=== PATIENT | female | born 2000 | race Two or more races ===

== ENCOUNTER 2025-01-09 20:01 | Emergency (ER) | payer SELFPAY ==
[~2025-01-09] VITALS: Ht 175.3 cm; Wt 150.0 kg
--- NOTE | 2025-01-09 20:33 | ED.PDOC ---
History of Present Illness HPI Comments 24 y/o F presents for c/c of palpitations. Patient reports onset 20x minutes ago, unprovoked, while relaxing and laying in bed. She endorses on feeling febrile and developing tremors to her hands, first, before palpitation episode ensued. Episode lasted 4-5x minutes in duration. At time of triaging and asses sment, patient reports being asymptomatic, currently. Denies any significant cardiac medical history or recent stressors, strenuous activities, or substance use. Chief Complaint: Palpitations Time Seen by MD: 20:10 Reviewed Notes: Nurses Notes, Allergies Allergies: Coded Allergies: NO KNOWN ALLERGIES (Unverified , 01/09/25) Information Source: Patient Mode of Arrival: Ambulatory Severity: Moderate Timing: Hours Duration: Intermittent, Minutes Prehospital treatment: None Past Medical History PAST MEDICAL HISTORY: Denies Surgical History: Denies all surgeries CONTRACT SPECIALIST History: Denies all CONTRACT SPECIALIST Hx Family History Family History: Unknown Social History Smoker: Non-Smoker Alcohol: Denies ETOH Use Drugs: Denies Drug Use Lives In: Home All Other Systems: Reviewed and Negative (Comprehensive systems review obtained and negative except for what is stated in the HPI.) Physical Exam General Appearance: No Apparent Distress, Normal HEENT: Normal ENT Inspection, Pharynx Normal, TMs Normal Neck: Full Range of Motion, Non-Tender, Normal, Normal Inspection Respiratory: Chest Non-Tender, Lungs Clear, No Accessory Muscle Use, No Respiratory Distress, Normal Breath Sounds Cardiovascular: No Edema, No JVD, No Murmur, No Gallop, Normal Peripheral Pulses, Regular Rate/Rhythm Breast Exam: Deferred Gastrointestinal: No Organomegaly, Non Tender, No Pulsatile Mass, Normal Bowel Sounds, Soft Genitalia: Deferred Pelvic: Deferred Rectal: Deferred Extremities: No calf tenderness, Normal capillary refill, Normal inspection, Normal range of motion, Non-tender, No pedal edema Musculoskeletal : Apperance: Normal Neurologic: Alert, 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 Was a procedure done?: No EKG EKG : Pulse Rate (adult): 88 Egan: Normal Cardiac Rhythm: NSR Block: None Hypertrophy: None ST: Normal Differential Dx Considerations may include: anxiety, panic attack, arrhythmia, electrolyte imbalance, viral syndrome, UTI, among others X-Ray, Labs, Meds, VS Vital Signs Date Time Temp Pulse Resp B/P (MAP) Pulse Ox O2 Delivery O2 Flow Rate FiO2 01/09/25 21:04 72 01/09/25 20:33 88 01/09/25 20:06 88 01/09/25 20:01 98.1 85 18 128/83 (98) 98 98.1 Lab Test 01/09/25 21:26 01/09/25 20:21 01/09/25 20:12 Range/Units Troponin I High Sensitivity < 3 L < 3 L </=34 ng/L White Blood Count 7.5 4.4-10.8 10^3/uL Red Blood Count 4.24 4.0-5.20 10^6/uL Hemoglobin 12.5 12.2-16.2 g/dL Hematocrit 36.7 36.0-46.0 % Mean Corpuscular Volume 86.6 80.0-100.0 fL Mean Corpuscular Hemoglobin 29.6 28.0-32.0 pg Mean Corpuscular Hemoglobin Concent 34.1 32.0-36.0 g/dL Red Cell Distribution Width 13.1 11.8-14.3 % Platelet Count 362 140-450 10^3/uL Mean Platelet Volume 6.6 L 6.9-10.8 fL Neutrophils (%) (Auto) 43.0 37.0-80.0 % Lymphocytes (%) (Auto) 42.5 10.0-50.0 % Monocytes (%) (Auto) 6.8 0.0-12.0 % Eosinophils (%) (Auto) 7.0 0.0-7.0 % Basophils (%) (Auto) 0.7 0.0-2.0 % Neutrophils # (Auto) 3.2 1.6-8.6 10 ^3/uL Lymphocytes # (Auto) 3.2 0.4-5.4 10 ^3/uL Monocytes # (Auto) 0.5 0-1.3 10 ^3/uL Eosinophils # (Auto) 0.5 0-0.8 10 ^3/uL Basophils # (Auto) 0.1 0-0.2 10 ^3/uL Nucleated Red Blood Cells 0.0 % Sodium Level 143 136-145 mmol/L Potassium Level 3.6 3.5-5.1 mmol/L Chloride Level 107 98-107 mmol/L Carbon Dioxide Level 28 20-31 mmol/L Anion Gap 8 5-15 Blood Urea Nitrogen 12 9-23 mg/dL Creatinine 0.74 0.550-1.02 mg/dL Glomerular Filtration Rate Calc 116 >90 mL/min BUN/Creatinine Ratio 16.2 10.0-20.0 Serum Glucose 111 H 74-106 mg/dL Calcium Level 10.1 8.7-10.4 mg/dL Urine Color Yellow Yellow Urine Clarity Clear Clear Urine pH 6.5 5.0-9.0 Urine Specific [place] 1.032 1.001-1.035 Urine Protein Trace H Negative Urine Ketones Negative Negative Urine Blood 2+ H Negative /uL Urine Nitrite Negative Negative Urine Bilirubin Negative Negative Urine Urobilinogen 2 H Negative mg/dL Urine Leukocyte Esterase Trace Negative /uL Urine RBC 1 0 - 4 /hpf Urine Microscopic WBC 3 0-5 /HPF Urine Squamous Epithelial Cells Few <5 /hpf Urine Bacteria None seen None Seen /hpf Urine Mucus Few None Seen Urine Glucose Normal Normal mg/dL [place] [id number] Ph: [phone] DIAGNOSTIC IMAGING Diagnostic Imaging Report : [id number] Signed PATIENT: ELOISA LUNA ACCT: [id number] UNIT: [id number] : 2000 LOC: ER ROOM / BED: / AGE / SEX: 24 / F ADM STATUS: REG ER SERVICE 11 ORDERING PHYSICIAN: ARIAN HATCH MD PROCEDURE(s): CXRP - CHEST PORTABLE REASON: palpitations ORDER NUMBER(s): [id number], ACCESSION NUMBER(s): [id number] EXAM: XY CHEST PORTABLE CLINICAL HISTORY: palpitations TECHNIQUE: Single frontal view of the chest WID: COMPARISON: None FINDINGS: Lines and tubes: None Chest: The heart size and pulmonary vasculature is within normal limits. No pleural effusion, pneumothorax, or consolidation. The osseous structures are grossly intact. IMPRESSION: No acute cardiopulmonary abnormality. ATED BY: AMELIA FRIEDMAN MD DICTATED DATE/TIME: 01/09/252035 SIGNED BY: AMELIA FRIEDMAN MD SIGNED DATE/TIME: 01/09/252035 CC: Time of 1ST Reevaluation: 20:40 Reevaluation 1ST: Unchanged Patient Education/Counseling: Diagnosis, Treatment, Need For Follow Up Family Education/Counseling: No Family Present Additional Information Previous visits reviewed: N/A The following tests were ordered, and results were reviewed by me: CXR, CBC, BMP, UA, troponin Additional Information was gathered from interviewing the following independent historians: N/A I reviewed and agreed with the following test results read by other providers: CXR I discussed treatment and results with medical personnel and: patient SEPSIS Sepsis Screen Date sepsis recognized/suspect: Jan 09, 2025 Time Sepsis recognized/suspect: 2000 Recent Procedure: No On Antibiotic Therapy: No Respiratory Rate >20: No Heart Rate >90: No Temp<36 C (96.8 F) or >38.3 C: No SBP <90 or MAP <65 mmHG: No New Acute Mental Status Change: No Is the patient on CPAP, BIPAP,: No Physician Orders Chest Portable (01/09/25 20:12) Electrocardigram (01/09/25 20:28) Electrocardigram (01/09/25 21:28) Electrocardigram (01/09/25 23:28) Vital Signs Date Time Temp Pulse Resp B/P (MAP) Pulse Ox O2 Delivery O2 Flow Rate FiO2 01/09/25 21:04 72 01/09/25 20:33 88 01/09/25 20:06 88 01/09/25 20:01 98.1 85 18 128/83 (98) 98 98.1 Laboratory Tests Test 01/09/25 20:21 White Blood Count 7.5 10^3/uL (4.4-10.8) Departure 1 Departure Time of Disposition: 22:29 (Patient presented with chest pain that was concerning for possible STEMI, ACS, PE, Pneumonia, Muscle Strain, COPD, Dissection. Data: 1. I ordered and reviewed the result of at least 3 labs including a CBC, BMP, and Troponin. 2. I independently interpreted the following tests: EKG which shows normal sinus rhythm and Chest X-ray which shows a benign chest.Risk:This patient presented with a high risk of morbidity due to further diagnostic testing or treatment and may suffer from an acute cardiac or respiratory disorder. After review of all the data patient is unlikely to have a pe , dissection, and is low risk for acs. Patient is stable at this time.Workup so far is benign and patient will be discharged with outpatient followup. ) Impression: Primary Impression: Palpitations Disposition: HOME / SELF CARE / HOMELESS Condition: Stable Additional Instructions: You presented today with palpitations. Your workup today was benign including labs, troponin, EKG, chest x-ray. Your pain may be from musculoskeletal strain, acid reflux, anxiety, or many other factors. It is important to follow up with your regular doctor within 1 week. If your symptoms worsen or you have any other concerns please return to the emergency room. Discharged With: Self, Significant Other Critical Care Note Critical Care Time?: No Stability Stability form required: No Heart Score Heart Score: Heart Score Response (Comments) Value History Slightly Suspicious 0 EKG Normal 0 Age <45 0 Risk Factors No known risk factors 0 Troponin Normal limit 0 Total 0 I personally scribed for ARIAN HATCH MD ([email or web address]) on 01/09/25 at 20:33. Electronically submitted by Mina Barber ([email or web address]). I personally scribed for ARIAN HATCH MD ([email or web address]) on 01/09/25 at 21:26. Electronically submitted by Mina Barber ([email or web address]). ARIAN HATCH MD Jan 09, 2025 20:33
--- NOTE | 2025-01-09 20:39 | DVH ---
EXAM: XY CHEST PORTABLE CLINICAL HISTORY: palpitations TECHNIQUE: Single frontal view of the chest WID: COMPARISON: None FINDINGS: Lines and tubes: None Chest: The heart size and pulmonary vasculature is within normal limits. No pleural effusion, pneumothorax, or consolidation. The osseous structures are grossly intact. IMPRESSION: No acute cardiopulmonary abnormality.
[2025-01-09 20:44] LABS: Hematocrit 36.7 % (36.0-46.0); Hemoglobin 12.5 g/dL (12.2-16.2); Mean Corpuscular Hemoglobin 29.6 pg (28.0-32.0); Mean Corpuscular Volume 86.6 fL (80.0-100.0); Nucleated Red Blood Cells % 0.0 %
[2025-01-09 20:44] LABS: Urine Protein, UAD TRACE (Negative)
[2025-01-09 20:46] LABS: Chloride 107 mmol/L (98-107); Potassium 3.6 mmol/L (3.5-5.1); Sodium 143 mmol/L (136-145)
[2025-01-09 20:47] LABS: Anion Gap 8 (5-15); Calcium 10.1 mg/dL (8.7-10.4); Carbon Dioxide 28 mmol/L (20-31)
[2025-01-09 20:52] LABS: BUN/Creatinine Ratio 16.2 (10.0-20.0); Blood Urea Nitrogen 12 mg/dL (9-23)
[2025-01-09 21:25] LABS: Glucose 111 mg/dL (74-106)
[2025-01-09 23:20] VITALS: BP 139/78; PULSE 66; RESP 18; TEMP 98.6; O2SAT 98
--- NOTE | 2025-01-10 08:29 | ECG ---
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
--- NOTE | 2025-01-10 08:30 | ECG ---
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
== END 2025-01-09 23:25 | disposition home or self-care (01) ==
LOC: ER 20:01
DX: R00.2 Palpitations (principal); Z79.899 Other long term (current) drug therapy
CPT/HCPCS: 36415; 71045; 80048; 81001; 84484; 85025; 93005